=== PATIENT | male | born 1980 | race Caucasian/White ===

== ENCOUNTER 2017-03-10 17:58 | Emergency (ER) | payer OTHER ==
[~2017-03-10] VITALS: Ht 177.8 cm; Wt 90.7 kg
[2017-03-10 18:18] VITALS: BP 145/95
[2017-03-10] MEDS ORDERED: DIAZ5TAB PO (19:04)
[2017-03-10] MEDS ORDERED: HYDR-2666 PO (19:04)
[2017-03-10] MEDS ORDERED: NAPR500T PO (19:04)
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
== END 2017-03-10 19:35 | disposition home or self-care (01) ==
LOC: ER 19:34
DX: S29.012A Strain of muscle and tendon of back wall of thorax, initial encounter (principal); S39.012A Strain of muscle, fascia and tendon of lower back, initial encounter; V49.49XA Driver injured in collision with other motor vehicles in traffic accident, initial encounter; Y93.89 Activity, other specified; Y99.8 Other external cause status; Y92.488 Other paved roadways as the place of occurrence of the external cause
CPT/HCPCS: 72072; 72100; 99284